=== PATIENT | male | born 1980 | race African-American/Black ===

== ENCOUNTER 2025-07-01 08:13 | Outpatient (AMB) | payer OTHER, SELFPAY ==
--- NOTE | 2025-07-01 08:18 | MHC.PC.OV ---
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: No Accompanied by: Self / Same As Patient Allergies No Known Allergies Allergy (Verified 07/01/25 08:18) Medication List - Last Reconciled 07/01/25 by Miguel A Blanco MD buspirone 10 mg PO BID cholecalciferol (vitamin D3) (Vitamin D3) 25 mcg PO DAILY mirtazapine 15 mg PO QPM propranolol 20 mg PO BID sertraline 50 mg PO DAILY telmisartan 40 mg PO DAILY Tobacco use date assessed: 07/01/25 Dental Screening Dental Screen Date: 07/01/25 Did you have a dental visit in the last 12 months?: Yes Did you have a dental problem in the last 6 months where you did not have access to dental care?: No [facility] Medical History (Updated 07/01/25 @ 10:46 by Miguel A Blanco MD) Encounter to establish care with new provider Family History (Updated 07/01/25 @ 08:32 by Ashlee Lafleur MA) Mother No problems noted. Father No problems noted. Other Mental health disorder Social History Housing: Apartment Patient Tobacco Use Status: Never used Tobacco e-Cigarette/Vaping Use: Never Used service: No Current occupational status: other Cognitive needs: No Hearing needs: No Vision needs: Yes (rx glasses) Questionnaire PHQ-9 Over the last 2 weeks, how often have you been bothered by any of the following problems? 1. Little interest or pleasure in doing things: nearly every day 2. Feeling down, depressed, or hopeless: nearly every day 3. Trouble falling or staying asleep, or sleeping too much: nearly every day 4. Feeling tired or having little energy: nearly every day 5. Poor appetite or overeating: nearly every day 6. Feeling bad about yourself - or that you are a failure or have let yourself or your family down: nearly every day 7. Trouble concentrating on things, such as reading the newspaper or watching television: nearly every day 8. Moving or speaking so slowly that other people could have noticed. Or the opposite - being so fidgety or restless that you have been moving around a lot more than usual: nearly every day 9. Thoughts that you would be better off or of hurting yourself in some way: several days Total score: 25 Source: Developed by Drs. Jamie Mosquera, Edilia Mccrary, Farhat Pool and colleagues, with an educational larry from [employer]. Thrive Questionnaire Date Thrive assessed: 07/01/25 I am a: Patient Within the past 12 months, did the food you bought not last and you didn't have the money to get more?: Never true Within the past 12 months, did you worry whether your food would run out before you got money to buy more?: Never true Do you have trouble paying for medicines?: No Do you have trouble getting transportation to medical appointments?: No Do you have trouble paying your heating and electricity bill?: No Do you have trouble taking care of your child, family member or friend?: No Do you have trouble with day-to-day activities such as bathing, preparing meals, shopping, managing finances, etc.?: No Are you currently unemployed and looking for a job?: No Are you interested in more education?: No THRIVE Score: 0 AUDIT C Alcohol Use Questionnaire (AUDIT-C) 1. How often do you have a drink containing alcohol?: Never 3. How often do you have six or more drinks on one occasion?: Never Total Score: 0 PARKER-7 AMB Questionnaire PARKER-7 Date PARKER - 7 assessed: 07/01/25 Feeling nervous, anxious, or on edge: 3 = Nearly every day Not being able to stop or control worryin = Nearly every day Worrying too much about different things: 3 = Nearly every day Trouble relaxin = Nearly every day Being so restless that it is hard to sit still: 3 = Nearly every day Becoming easily annoyed or irritable: 3 = Nearly every day Feeling afraid as if something awful might happen: 3 = Nearly every day Total PARKER-7 score (0-4 normal; 5-9 mild; 10-14 moderate; 15-21 severe): 21 Source: Developed by Drs. Jamie Mosquera, Edilia Mccrary, Farhat Pool and colleagues, with an educational larry from [employer]. Physical exam (Primary Care) Vital Signs: Last Vital Signs Temp 97.9 F 07/01/25 08:26 Pulse 72 07/01/25 08:26 BP 136/84 07/01/25 08:26 Pulse Ox 99 07/01/25 08:26 Oxygen Delivery Method Room Air 07/01/25 08:26 BMI result Body Mass Index 30.3 Tobacco/Smoking Status: Tobacco use Status Tobacco use date assessed 07/01/25 07/01/25 08:26 Patient Tobacco Use Status Never used Tobacco 07/01/25 08:26 e-Cigarette/Vaping Use Never Used 07/01/25 08:26 PHQ-9: PHQ-9 Score PHQ-9: Total score 07/01/25 08:35 Thrive Assessment: Date of Thrive Assessment Date Thrive assessed 07/01/25 07/01/25 08:26 Coding Level of Care Code Admin Sign Off/No Billing Diagnoses Encounter to establish care with new provider Z76.89 Assessment & Plan Assessment & Plan (1) Encounter to establish care with new provider: Code(s): Z76.89 - Persons encountering health services in other specified circumstances Category: Medical Plan The patient presented to establish care; however, the encounter was significantly limited by the patient?s unwillingness to engage in routine medical history-taking despite multiple explanations regarding the clinical relevance of the questions. The physician repeatedly explained that the intent of the visit was to provide medical care and preventive guidance and that history-taking was necessary to do so safely. The patient expressed mistrust of prior physicians, repeatedly referenced ongoing disability claims and legal representation, and declined to meaningfully answer questions regarding past medical history, substance use, and smoking history, stating that such information was already in the medical record or could be misused. The patient requested diagnostic testing without medical indication, which was explained and appropriately deferred. He also expressed dissatisfaction with prior specialist care and reported non-attendance at a scheduled gastroenterology appointment. Due to the patient?s persistent refusal to provide essential information and ongoing resistance to the clinical process, a comprehensive evaluation and treatment plan could not be completed. No acute medical issues were identified during the limited encounter. The patient left the visit without completion of care secondary to limited participation and non-engagement, despite reasonable attempts by the physician to proceed
[2025-07-01 08:26] VITALS: BP 136/84; PULSE 72; TEMP 36.6; O2SAT 99; BMI 30.3
--- OUTSIDE RECORDS SUMMARY | 2025-07-01 08:28 | XMS_ITS | Clinical Summary ---
Author Organization [facility] Address [address] [place] [address] [address] [place] [address] Care Team Providers Care Leach Runner Name Role Phone Unavailable Primary Care Provider Unavailabl e Allergies No known active allergies Medications cyclobenzaprin e (Flexeril) 10 MG tablet Take 1 tablet (10 mg) by mouth at bedtime for 10 days. 10 tablet 4 Active valACYclovir (Valtrex) 1 g tablet Take 2,000 mg by mouth if needed in the morning and at bedtime. 3 Active tamsulosin (Flomax) 0.4 MG 24 hr capsule Take 1 capsule by mouth in the morning. 4 Active predniSONE (Deltasone) 10 MG tablet PLEASE SEE ATTACHED FOR DETAILED DIRECTIONS 4 Active Lialda 1.2 g EC tablet Take 4.8 g by mouth with breakfast. Active ketoconazole (NIZOral) 2 % cream APPLY TO THE AFFECTED AREA(S) BY TOPICAL ROUTE ONCE DAILY Active famotidine (Pepcid) 20 MG tablet Take 20 mg by mouth if needed in the morning and at bedtime. 4 Active dexAMETHasone (Decadron) 1 MG tablet Take 1 mg by mouth See administration instructions. 4 Active [facility] B-12 500 MCG tablet Take 500 mcg by mouth Once per day. Active clotrimazole (Lotrimin) 1 % external solution APPLY TO THE AFFECTED AND SURROUNDING AREAS OF SKIN BY TOPICAL ROUTE 2 TIMES PER DAY IN THE MORNING AND EVENING Active budesonide EC (Entocort EC) 3 MG 24 hr capsule Take 9 mg by mouth in the morning. 3 Active [facility] Heartburn Relief Ex St 254-237.5 MG/5ML suspension PLEASE SEE ATTACHED FOR DETAILED DIRECTIONS Active Active Problems Problem Noted Date Diagnosed Date Fear of flying 10/22/2023 Overview (05/13/2024): Fear of Flying not problematic because he chooses ground transportation. Last Assessment & Plan: Fear of Flying not problematic because he chooses ground transportation. Adenoma of left adrenal gland 10/03/2023 Overview (05/13/2024): Last Assessment & Plan: On CT: [facility] 10/03/23 Adrenal adenoma left 15 mm adrenal rounded lesion, [place] 31. He was told in the past on a CT 'lesions' however does not recall w/u. History of facial palsy 09/01/2023 Overview (05/13/2024): Last Assessment & Plan: He states history of stroke before 2015 . Notes that he had facial droop. Denies being told [place] Palsy. He has no residual deficits . Mother with CVA in 30s. Lab Results Component Value Date CHOL 178 01/08/2022 HDL 36 (L) 01/08/2022 LDL 114 01/08/2022 TRIG 139 01/08/2022 NONHDL 142 01/08/2022 Encouraged exercise BP is controlled w/o medications. Chest wall mass 08/20/2023 Overview (05/13/2024): Last Assessment & Plan: Axillary pain, Advised patient to complete imaging of mammo, US for lump as noted. Reviewed in detail with patient that he missed his imaging however he notes that this has been rescheduled which is noted w/in chart. Family history of breast cancer in mother 2023 Overview (05/13/2024): Last Assessment & Plan: No relationship Epigastric discomfort 06/04/2023 Overview (05/13/2024): Last Assessment & Plan: History of presumed H. pylori gastritis with associated PUD with a variety of complaints including more recently epigastric pain. Difficult to determine the etiology of his pain given inability to get a clear history. Differential is broad but reassuring given recent normal labs and CT scan. This was explained to the patient again in person during visit best as I could. With a negative H. pylori stool test the likelihood of significant peptic ulcer disease is rather low however given ongoing symptoms I do think endoscopic evaluation is warranted. However there are some social barriers including the need for patient to have a skidder home after sedation. We were unable to address either of these issues adequately during this visit Former smoker 04/19/2023 Overview (05/13/2024): Last Assessment & Plan: Reviewed that this is a risk for cancer. Recent CHEST XRAY within normal limits. Denies breathing concerns. Advised patient to complete imaging of mammo, US for lump as noted. Reviewed in detail with patient that he missed his imaging however he notes that this has been rescheduled which is noted w/in chart. 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 No swelling penile pain discharge Will get an US to further characterize, referred to urology Benign essential hypertension 08/24/2022 Overview (04/30/2024): Last Assessment & Plan: He has been exercising. Has not taken medication recently. Notes healthier lifestyle. For now will monitor and not resume medication B12 deficiency 07/05/2022 Overview (05/13/2024): Last Assessment & Plan: Ulcerative pancolitis. B12 in 200s. Reviewed B12 injections may help with memory as well as energy. He agrees to injections as well as starting Supplement . Depression with anxiety 07/05/2022 Overview (05/13/2024): Last Assessment & Plan: I voiced my concern to patient that he is anxious regarding his medical concerns that is possibly compounding his symptoms . He disagrees. Positive QuantiFERON-TB Gold test 06/04/2022 Overview (05/13/2024): Last Assessment & Plan: LTB followed by ID s/p 3 months of Rx and now a candidate for Anti-TNF if needed Palpitations 03/02/2022 Overview (05/13/2024): Last Assessment & Plan: He continues to have palpitations. Has been years. Believes he had echo, holter in the past that was normal. TSH Date Value Ref Range Status 01/08/2022 1.47 0.51 - 6.27 uIU/mL Final Comment: Euthyroid range 0.51-6.270 muIU/mL. Values above 6.270 muIU/mL suggust hypothyroid states. Values between 0.01-0.51 muIU/mL may be on a thyroidal or non thyroidal basis and require further evaluation. Values above 6.270 muIU/mL suggust hypothyroid states. Has not seen a specialist He notes that he will have faster HR x few secs and occurring 5-10 times/day. Denies associated cp, palps, sweating Can occur sitting He used to drink expresso and now only drinking 2 c coffee/day. He notes that slight improvement in sx. In review he drinks a lot of ice tea/day. bp is elevated and reviewed could be correlation He would rather reschedule echo and await testing results prior to consult with cardiology Stressed the importance to limit caffeine. 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 Continued sx,despite 5ASA and colonoscopy with mild-moderate disease but interested rectal sparing. Continued Sx despite course of budesonide so discussed at last visit will need escalation of treatment to anti-TNF but patient was hesitant at that time to start any injectable medications. Tried to address this again during today's visit and he was adamant about not masking his symptoms with medications. We are unable to properly address any further issues regarding his UC giving abrupt disruption of visit Encounter for routine adult medical exam with abnormal findings 12/28/2021 Family history of early CAD 12/28/2021 Overview (05/13/2024): Mother in 40s Last Assessment & Plan: Notes he has had chest pain for years. Told at a clinic recently that he had something wrong with his heart 'when they listened'. +RENE. Denies hx of cocaine. States nl ekgs x mulitple and neg ETT about 5 yrs ago. Lipid testing ordered. Stop smoking advised. Immunizations Immunization Administration Dates Next Due Pneumococcal Polysaccharide PPSV23 12/28/2021 Social History Tobacco Use Types Packs/Day Years Used Date Smoking Tobacco: Never Assessed Sex and Gender Information Value Date Recorded Sex Assigned at Male 04/29/2024 9:07 AM EDT Legal Sex Male 9:05 AM EDT Gender Identity Male 04/29/2024 9:07 AM EDT Sexual Orientation Straight 04/29/2024 9: 07 AM EDT Last Filed Vital Signs Vital Sign Reading Time Taken Comments Blood Pressure 120/80 06/05/2024 4:56 PM EST Pulse 78 06/05/2024 4:56 PM EST Temperature 36.8 C (98.3 F) 06/05/2024 4:56 PM EST Respiratory Rate - - Oxygen Saturation - - Inhaled Oxygen Concentration - - Weight - - Height - - Body Mass Index - - Plan of Treatment Health Maintenance Due Date Last Done Comments CT Colonography 1979 Colonoscopy 1979 Colorectal Cancer Screening 1979 Dental Oral Exam 1979 Dental Prophylaxis 1979 Dental X-Ray: Bitewings 1979 Depression Screening 1979 FIT DNA/Cologuard 1979 FIT 1979 FOBT 1979 HIV Screening 1979 Lipid Panel 1979 SDOH Screening 1979 Sigmoidoscopy 1979 Disability Screening 1979 Alcohol/Substance Use Screening 1991 Tobacco Screening 1991 Family Planning (PISQ) 1994 Hepatitis C Screening 1997 DTaP/Tdap/Td Vaccines (1 - Tdap) 1998 Hepatitis B Vaccines (1 of 3 - 19+ 3-dose series) 1998 COVID-19 Vaccine ( - 2024-2 6 season) 2025 Influenza Vaccine (#1) 2025 Dental X-Ray: Full Mouth 05/01/2027 04/30/2024 Zoster Vaccines (1 of 2) 2029 RSV Patients and Pa tients Aged 60 years or older (1 - 1-dose 75+ series) 2054 Pneumococcal Vaccine: Pediat rics (0 to 5 Years) and At-Risk Patients (6 to 49) Years Aged Out 12/28/2021 No longer eligi ble based on patient's age to complete this topic HIB Vaccines Aged Out No longer eligi ble based on patient's age to complete this topic HPV Vaccines Aged Out No longer eligi ble based on patient's age to complete this topic Hepatitis A Vaccines Aged Out No long er eligible based on patient's age to complete this topic IPV Vaccines Aged Out No longer eligi ble based on patient's age to complete this topic Meningococcal B Vaccine Aged Out No l onger eligible based on patient's age to complete this topic Meningococcal Vaccine Aged Out No mirza farshad eligible based on patient's age to complete this topic RSV under 20 months Aged Out No longe r eligible based on patient's age to complete this topic Rotavirus Vaccines Aged Out No longer eligible based on patient's age to complete this topic Procedures Procedure Name Priority Date/Time Associated Diagnosis Comments PANORAMIC RADIOGRAPHIC IMAGE Routine 04/30/2024 11:15 AM EDT from Last 3 Months or Most Recently Relevant to Health Maintenance [place] [address] [address] STANDARD [facility] DENTAL-[facility] MEDICAID STAND ADULT DENTAL - HSN FULL (MEDICAID)
--- OUTSIDE RECORDS SUMMARY | 2025-07-01 08:28 | XMS_ITS | Data Portability ---
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 Heard at [facility] in [place]. I will obtain all those records. From what we know at current, he was previously taking 5ASA 4.8g daily with poor efficacy, was spoken to briefly about switching to an injection, and he transferred care after moving. Currently reports having diarrhea 10+ times a day, sometimes bloody, and chronic abdominal and anorectal pain. it seems his last colonoscopy was in 2022, and he is reportedly overdue for a repeat. I worry about medical literacy and compliance of this patient so he will require careful, follow up. [email or web address] Not available 08/25/2024 18:21:34 Plan of Treatment Reminders Order Date Submit Date Provider Last Modified By Organization Details Last Modified Time Details Appointments None recorded. Lab calprotect in, stool 2024 025 [facility], [address] [place], [address], 15:30:43 CBC w/ auto diff 2024 025 [facility], [address] [place], [address], 5 15:30:43 CMP, serum or plasma 2024 [facility], [address] [place], [address], 5 15:30:42 C reactive protein, QN, serum or plasma 2024 025 [facility], [address] [place], [address], 5 15:30:42 vitamin B12 + folate, serum or blood 2024 [facility], [address] [place], [address], 5 15:30:43 vitamin D, 25-hydroxy , total, serum 2024 [facility], [address] [place], [address], 5 15:30:43 7-alpha hydroxy-4- cholesten- 3-one, QN, serum or plasma 2024 025 [facility], [address] [place], [address], 5 15:30:43 hepatitis B surface Ab, qualitativ e, serum 2024 [facility], [address] [place], [address], 5 15:30:43 HBsAg (hepatitis B surface Ag), EIA, serum 2024 [facility], [address] [place], [address], 5 15:30:42 Hepatitis B virus core Ab, qual immunoassa y, serum or plasma 2024 025 [facility], [address] [place], [address], 5 15:30:42 hepatitis C virus Ab, serum 2024 025 [facility], [address] [place], [address], 5 15:30:43 hepatitis A Ab, total, serum 2024 [facility], [address] [facility] [place], [address], 5 15:30:43 C diff toxin A+B, qual IA, stool 2024 025 [facility], [address] [place], [address], 5 15:25:23 gastrointe stinal pathogens panel, culture, stool 2024 025 [facility], [address] [place], [address], 5 16:20:32 Referral None recorded. Procedures None recorded. Surgeries None recorded. Imaging XR, chest, 2 view - Please call patient to schedule. DX: +qGOLD test. 2024 025 [email or web address] [place] [facility], [address] [place], [address], 5 23:25:20 Medication Orders dicyclomin e 20 mg tablet 2024 025 [facility] #1062, [address] [place], [address], 5 15:14:[address]-ER 9 mg tablet,del ayed and extended release 2024 025 [facility]acy #1068, [address] [facility], [address], 5 15:00:28 budesonide ER 6 mg capsule,ex tended release 2024 025 [email or web address] [facility]/Pharmacy #1068, [address] [facility] [place], [place], [address], 5 18:20:[address] - ER 3 mg capsule,de layed,exte nded release 2024 025 [facility] #1068, [address] [facility] [place], [place], [address], 5 15:00:27 Patient TargetsNo targets recorded. Patient InstructionsNo instructions recorded. Reason for Referral None Reported. Problems Name Problem SNOMED Code Status Onset Date Resolution Date Notes Provider Name and Address Organization Details Recorded Time Ulcerativ e colitis 70663755 Active Radha bhagat [place] [facility] 4 03:09:57 Epigastri c discomfor t 981950393 Active Radha bhagat [place] [facility] 4 01:01:40 Adenoma of left adrenal gland 568284090045 78685 Active Radha bhagat [place] [facility] 4 01:01:53 Chronic diarrhea 010496091 Active 2024 GOMEZ OLMEDO [address] [facility] [address], [place], [address], [facility] 5 14:56:26 Hematoche elaine 786917957 Active 2024 GOMEZ OLMEDO [address] [facility] [address], [place], [address], [facility] 5 15:23:33 Chronic abdominal pain 779382297 Active 2024 GOMEZ OLMEDO [address] [facility] [address], [place], [address], [facility] 5 15:27:18 Problem Notes None recorded. Medical Equipment None Reported. Allergies No known drug allergies Medications Name Sig Start Date Stop Date Status Note LastModified by Organization Details LastModified Time cyclobenz aprine 10 mg tablet TAKE 1 TABLET BY MOUTH AT BEDTIME FOR 10 DAYS active Not Available Not Available No t Available acetamino phen 325 mg tablet TAKE 2 TABLETS BY MOUTH 4 TIMES A DAY NEEDED FOR PAIN , MAX 8 TABS IN 24 HRS active Not Available Not Available No t Available valacyclo vir 1 gram tablet TAKE 1 TABLET BY MOUTH EVERY DAY FOR 5 DAYS active Not Available Not Available No t Available rizatript an 10 mg tablet PLEASE SEE ATTACHED FOR DETAILED DIRECTIO NS active Not Available Not Available No t Available triamcino lone acetonide 0.025 % lotion APPLY SMALL AMOUNT TO AFFECTED AREAS ON HANDS ONCE A DAY FOR TWO WEEKS active Not Available Not Available No t Available ciclopiro x 8 % topical solution PLEASE SEE ATTACHED FOR DETAILED DIRECTIO NS active Not Available Not Available No t Available famotidin e 20 mg tablet TAKE 20 MG ORALLY TWICE A DAY active Not Available Not Available No t Available cyanocoba tanya (vit B-12) 500 mcg tablet TAKE 1 TABLET BY MOUTH DAILY active Not Available Not Available No t Available dicyclomi ne 20 mg tablet TAKE 1 TABLET BY MOUTH THREE TIMES DAILY. active Not Available Not Available No t Available dexametha sone 1 mg tablet TAKE 1 TABLET (1 MG TOTAL) BY MOUTH DIRECTED . TAKE AT 11 PM AND THEN COMPLETE LAB AT 8 AM active Not Available Not Available No t Available telmisart an 40 mg tablet TAKE 1 TABLET BY MOUTH EVERY DAY active Not Available Not Available No t Available ibuprofen 400 mg tablet TAKE 1 TABLET BY MOUTH (400 MG) EVERY 8 HOURS NEEDED FOR PAIN, MAX DAILY DOSE 3 TABLETS active Not Available Not Available No t Available telmisart an 20 mg tablet TAKE 1 TABLET BY MOUTH EVERY DAY active Not Available Not Available No t Available budesonid e DR - ER 3 mg capsule,d elayed,ex tended release Take 3 capsules every day by oral route in the morning. 2024 active Not Available Not Available Not Avai lable propranol ol 20 mg tablet TAKE 1 TABLET BY MOUTH TWICE A DAY active Not Available Not Available No t Available naproxen 500 mg tablet PLEASE SEE ATTACHED FOR DETAILED DIRECTIO NS active Not Available Not Available No t Available amoxicill in 875 mg-potass ium clavulana te 125 mg tablet TAKE 1 TABLET BY MOUTH TWICE A DAY FOR 10 DAYS active Not Available Not Available No t Available Vitamin D3 25 mcg (1,000 unit) tablet TAKE 1 TABLET (25 MCG) BY MOUTH DAILY active Not Available Not Available No t Available Heartburn Relief 254 mg-237.5 mg/5 mL oral suspensio n PLEASE SEE ATTACHED FOR DETAILED DIRECTIO NS active Not Available Not Available No t Available Vitamin B12 active Not Available Not Available Not Available Lialda 1.2 gram tablet,de layed release TAKE 4 TABLETS BY MOUTH DAILY WITH BREAKFAS T. active Not Available Not Available No t Available Gavilax 17 gram/dose oral powder PLEASE SEE ATTACHED FOR DETAILED DIRECTIO NS active Not Available Not Available No t Available Uceris 9 mg tablet, extended release TAKE 1 TABLET EVERY DAY BY ORAL ROUTE IN THE MORNING FOR 56 DAYS. active Not Available Not Available No t Available budesonid e ER 6 mg capsule,e xtended release Take 1 capsule every day by oral route in the morning for 14 days. 2024 active Not Available Not Available Not Avai lable Sutab 1.479-0.1 88-0.225 gram tablet Take 12 tablets every day by oral route as directed for 2 days. 03/05 completed Take one bottle of twelve (12) tablets with 16 oz of water day before, Take one bottle of twelve (12) tablets with 16 oz of water morning of procedur e. Not Available Not Available Not Available Vitals Date Recorded Body weight Body mass index (BMI) Body height Heart rate Oxygen saturation Systolic And Diastolic Provider Name and Address Organization Details Last Updated DateTime 5 62822.3 g 30.3 kg/m2 160.02 cm 60 /min 99 % 110/80 mm[Hg] Lesli Glover [place] [facility] 14:27:08 Social History Question Answer Notes LastModified by Organization D etails LastModified Time Tobacco Smoking Status Never Smoker Brown bhagat [place] [facility] 08/23/2024 13:22:01 What Is Your Level Of Caffeine Consumption? Heavy 6 Cups Pf Tea Once A Day [email or web address] Information not available 08/25/2024 What Was The Date Of Your Most Recent Tobacco Screening? 08/25/2024 [email or web address] Information not available 08/25/2024 Sex: Unknown Functional Status Question Answer Note LastModified by Organizat ion Details LastModified Time Do you use any illicit or recreational drugs? No [email or web address] Information not available 08/25/2024 Do you or have you ever used any other forms of tobacco or nicotine? No Information not available 08/23/2024 What is your level of alcohol consumption? None Information not available 08/23/2024 Mental Status None recorded. Family History Relationship Description Onset Age of this Age Resolved Age Notes LastModified by Organization Details LastModified Time Father No current problems or disability [email or web address] Not available 08/25 14:27:50 Mother No current problems or disability [email or web address] Not available 08/25 14:27:50 Medical History No medical history recorded. Past Encounters Encounter ID Performer Location Encounter Start Date Encounter Closed Date Diagnosis/Indication Diagnosis SNOMED-CT Code Diagnosis ICD10 Code Diagnosis IMO Codes Diagnosis Note [id number] GOMEZ OLMEDO [place] [facility] [address] [place] [address] [address] [place] [address] 08/25/2024 13:54:37 09/09/2024 23:25:20 Ulcerative colitis 90539282 K51.011 Will obtain records from [facility], records consent signed, start over with new blood work, calpro, CDiff, start budesonide taper if/after negative Cdiff. Will plan for colonoscop y and f/u to discuss new tx/med plan. Has previously known +qgold/PPD per PCP record. May need ID consult and will plan for chest Xray. Chronic diarrhea 2663206 09 K52.9 Plan to treat CDiff if positive. B.A.S if elevated [id number], plan for colonoscop y. Dicyclomin e PRN for symptom relief. History of cholecystectomy 597244902 Z90.49 Check [email or web address], may benefit from B.A.S but unclear at this time. Hematochezia 442924428 K 92.1 Chronic ab dominal pain 841437476 R10.9 Exposure t o tuberculosis 6831932501 101 Z20.1 Health Concerns Section Related Observation LastModified by Organization Detai ls LastModified Time None Recorded Concern Status LastModified by Organization Details LastModified Time None Recorded Advance Directives Directive None Recorded Payers Insurance Date Sequence Insurance Name Policy Number Policy Dash Covered Member ID Dash Member ID Guarantor Name 05/31/2025 1 [facility] (HMO) [id number] Franky Weinberg [id number] Franky Weinberg 02/15/2025 2 [facility] [employer] (HMO) Franky Weinberg [id number] Franky Weinberg 05/31/2025 1 [facility] NET [employer] (MEDICAID HMO) [id number] Franky Weinberg [id number] Franky Weinberg Notes Date Note Type Note Provider Name and Address Organization Details Recorded Time 08/25/2024 text/html ROS as noted in the HPI Franky is a 44M with HTN, B12 deficiency, migraines, HSV1, chronic pain, hx drug abuse, hx lap alyse and jauregui-UC (dx ?2018) who presents to [facility].Last colonoscopy reported as 2022 with bx indicating chronic colitis . Was previously seen by Dr. Lucio Heard in [facility]. States he was on 4.8g mesalamine (Lialda) for many years, and stopped because he ran out months ago but it wasn't not working. Patients states he was recently discussing with Dr. Heard that he was getting worse, failing mesalamine and brought up the possibility of an injection med. He notes he was supposed to have a lot of follow up colonoscopy a while ago but hadn't. Patient appears to have a very poor understanding of the implications of this dx.He notes for months and years he has been having excessive diarrhea 10x a day, often times bloody, rectal pain, abdominal pain, nausea, physical weakness,Denies: fevers, vomiting, weight loss, rashes. 12/2023: Normal CBC, CMP, Fe panelHx +quant gold/PPD in pastCT: 09/2023: a few mild enlarged ileocolic lymph nodes, ?mesenteric adenitis. Debi Ochoa MD [address] [facility] [address], [place], [address], [facility] 08/25/2024 18:22:10
== END 2025-07-01 09:00 | disposition home or self-care (01) ==
LOC: HO.HMCHD 08:13
PROVIDERS: PCP Student in an Organized Health Care Education/Training Program; Visit Provider Student in an Organized Health Care Education/Training Program
DX: Z76.89 Persons encountering health services in other specified circumstances (principal)